=== PATIENT | male | born 1960 | race Caucasian/White ===

== ENCOUNTER 2017-07-05 14:28 | Inpatient (IN) | payer MEDICAID ==
[~2017-07-05] VITALS: Ht 180.3 cm; Wt 125.6 kg
[2017-07-05 15:32] LABS: Basophils # (auto) 0.1 uL; Eosinophils # (auto) 0.1 uL; Lymphocytes # (auto) 1.9 uL; Mean Corpuscular Hgb Conc. 34.1 g/dL (32.0-36.0); Neutrophils # (auto) 3.7 uL; Platelet Count (auto) 61 10^3/uL (140-450); White Blood Cell 6.3 10^3/uL (4.4-10.8)
[2017-07-05 15:34] LABS: Basophils % (auto) 0.8 % (0.0-2.0); Eosinophils % (auto) 1.7 % (0.0-7.0); Hematocrit 49.9 % (41.0-53.0); Lymphocytes % (auto) 29.9 % (10.0-50.0); Mean Corpuscular Volume 96.9 fL (80.0-100.0); Monocytes # (auto) 0.6 uL; Monocytes % (auto) 8.8 % (0.0-12.0); Neutrophils % (auto) 58.8 % (37.0-80.0); Nucleated Red Blood Cells % 0.3 %; Red Blood Cells 5.15 10^6/uL (4.5-5.90); Red Cell Distribution Width 14.3 % (11.8-14.3)
[2017-07-05 15:52] LABS: Albumin 3.1 g/dL (3.4-5.0); BUN/Creatinine Ratio 16.3; Bilirubin, Total 2.3 mg/dL (0.2-1.0); Calcium 8.8 mg/dL (8.5-10.1); Potassium 4.6 mmol/L (3.5-5.1); Total Protein 7.1 g/dL (6.4-8.2)
[2017-07-05] MEDS ORDERED: ONDANSETRON HCL 4 MG/2 ML VIAL IV ONE (19:00)
[2017-07-05] MEDS ORDERED: MORPHINE SULFATE 4 MG/ML SYR/VIAL IV ONE (19:00)
[2017-07-05] MEDS ORDERED: ASPirin 81 mg TAB PO ONE (19:00)
[2017-07-05] MEDS: SODIUM CHLORIDE 0.9% 1,000 ML IV SCH (19:21)
[2017-07-05 19:29] LABS: INR 1.18 (0.9-1.15); Partial Thromboplastin Time 31.6 sec (22.64-33.71); Prothrombin Time 12.9 sec (9.37-12.3)
[2017-07-05] MEDS ORDERED: THIAMINE HCL 100 MG/ML 2ML VIAL IV ONE (19:30)
[2017-07-05] MEDS ORDERED: LACTULOSE 20Gm/30ML SOLN PO PRN (19:30)
[2017-07-05] MEDS ORDERED: MORPHINE SULFATE 4 MG/ML SYR/VIAL IV PRN ×3 (19:30)
[2017-07-05] MEDS ORDERED: PROMETHAZINE HCL 25 MG/ML 1ML IV PRN (19:30)
[2017-07-05] MEDS ORDERED: TEMAZEPAM 15 MG CAP PO PRN (19:30)
[2017-07-05] MEDS ORDERED: NITROGLYCERIN 0.4 MG SL TAB SL PRN (19:30)
[2017-07-05] MEDS ORDERED: LORazepam 0.5 MG TAB PO PRN (19:30)
[2017-07-05] MEDS ORDERED: chlordiazePOXIDE HCL 25 MG CAP PO PRN (19:30)
[2017-07-05] MEDS ORDERED: METOPROLOL TARTRATE 25 MG TAB PO SCH (22:00)
[2017-07-05] MEDS: CARVEDILOL 3.125 MG TAB PO SCH (22:45)
[2017-07-05] MEDS: ENOXAPARIN SOD 120 MG/0.8 ML SYRINGE SC SCH (22:46)
[2017-07-06] MEDS: chlordiazePOXIDE HCL 5 MG CAP PO SCH ×2 (00:55→06:00)
[2017-07-06] MEDS ORDERED: FUROSEMIDE 40 MG/4 ML VIAL ONE (01:19)
[2017-07-06] MEDS ORDERED: LORazepam 2MG/ML-1ML VIAL IV ONE (01:30)
[2017-07-06] MEDS ORDERED: FUROSEMIDE 40 MG/4 ML VIAL IV ONE (01:30)
[2017-07-06] MEDS ORDERED: ETOMIDATE (2MG/ML) 20ML VIAL IV ONE (01:50)
[2017-07-06] MEDS ORDERED: SUCCINYLCHOLINE CHLORIDE 20 MG/ML 10ML VIAL IV ONE (01:50)
[2017-07-06] MEDS ORDERED: PROPOFOL 0 ML IV ONE (01:50)
[2017-07-06] MEDS ORDERED: IOHEXOL 350 MG/ML 100ML IJ ONE (02:15)
[2017-07-06 05:57] LABS: Basophils # (auto) 0 uL; Basophils % (auto) 0.6 % (0.0-2.0); Eosinophils # (auto) 0.1 uL; Eosinophils % (auto) 1.8 % (0.0-7.0); Hematocrit 49.5 % (41.0-53.0); Hemoglobin 16.8 g/dL (13.5-17.5); Lymphocytes # (auto) 1.8 uL; Lymphocytes % (auto) 23.2 % (10.0-50.0); Mean Corpuscular Hemoglobin 33.1 pg (28.0-32.0); Mean Corpuscular Hgb Conc. 33.8 g/dL (32.0-36.0); Mean Corpuscular Volume 97.8 fL (80.0-100.0); Monocytes # (auto) 0.6 uL; Neutrophils # (auto) 5.2 uL; Neutrophils % (auto) 66.4 % (37.0-80.0); Nucleated Red Blood Cells % 0.1 %; Platelet Count (auto) 66 10^3/uL (140-450); Red Blood Cells 5.06 10^6/uL (4.5-5.90); Red Cell Distribution Width 14.3 % (11.8-14.3); White Blood Cell 7.8 10^3/uL (4.4-10.8)
[2017-07-06 06:23] LABS: Albumin 3.1 g/dL (3.4-5.0); BUN/Creatinine Ratio 10.7; Bilirubin, Total 2.5 mg/dL (0.2-1.0); Calcium 8.3 mg/dL (8.5-10.1); Potassium 4.9 mmol/L (3.5-5.1)
[2017-07-06] MEDS: SODIUM CHLORIDE 0.9% 1,000 ML IV SCH (07:08)
[2017-07-06] MEDS: THIAMINE HCL 100 MG/ML 2ML VIAL IV SCH (10:00)
[2017-07-06] MEDS ORDERED: ENALAPRIL MALEATE 2.5 MG TAB PO SCH (10:00)
[2017-07-06] MEDS: FUROSEMIDE 40 MG/4 ML VIAL IV SCH (10:06)
[2017-07-06] MEDS: ENOXAPARIN SOD 120 MG/0.8 ML SYRINGE SC SCH (10:07)
[2017-07-06] MEDS: POTASSIUM CHL 20 Meq TABLET PO SCH (10:07)
[2017-07-06] MEDS: PANTOPRAZOLE 40 MG TAB PO SCH (10:07)
[2017-07-06] MEDS: NITROGLYCERIN 0.2MG/HR TOPICAL PATCH TD SCH (10:07)
[2017-07-06] MEDS: CARVEDILOL 3.125 MG TAB PO SCH ×2 (10:07→21:55)
[2017-07-06] MEDS ORDERED: LORazepam 0.5 MG TAB PO PRN (11:15)
[2017-07-06 15:00] VITALS: BP 101/50
[2017-07-06 16:00] VITALS: BP 96/59
[2017-07-06] MEDS ORDERED: SODIUM CHLORIDE 0.9% 1,000 ML IV SCH (16:15)
[2017-07-06 18:33] LABS: Urine WBC None Seen /hpf (0 - 3)
[2017-07-06 18:44] LABS: Urine Bacteria NONE SEEN /hpf (None Seen); Urine Blood 2+ /uL (Negative); Urine Mucus FEW (None Seen)
[2017-07-06] MEDS ORDERED: LACTULOSE 20Gm/30ML SOLN PO SCH (18:45)
[2017-07-06 18:48] LABS: Urine Specific Gravity > 1.050 (1.001-1.035)
[2017-07-06] MEDS ORDERED: cefTRIAXone 1GM/10ml IVPUSH 10 ML IV ONE (19:00)
[2017-07-06 19:06] LABS: Alcohol, Urine < 3.0 mg/dL (0-5); Amphetamine Screen, Urine POSITIVE (NEGATIVE); Barbiturate Scree,Urine NEGATIVE (NEGATIVE); Benzodiazephine Screen, Urine POSITIVE (NEGATIVE); Cannabinoid Screen, Urine NEGATIVE (NEGATIVE); Cocaine Screen, Urine NEGATIVE (NEGATIVE); Opiate Scree,Urine POSITIVE (NEGATIVE); Phencyclidine Screen, Urine NEGATIVE (NEGATIVE)
[2017-07-06 19:37] VITALS: BP 95/73
[2017-07-06 20:00] VITALS: BP 104/72
[2017-07-06] MEDS: LACTULOSE 20Gm/30ML SOLN PO SCH ×2 (21:54→23:47)
[2017-07-06] MEDS ORDERED: ENOXAPARIN SOD 120 MG/0.8 ML SYRINGE SC SCH (22:00)
[2017-07-07] VITALS (11 sets, daily range): BP systolic 101–130; BP diastolic 59–86
[2017-07-07] MEDS ORDERED: LACTULOSE 20Gm/30ML SOLN PO SCH
[2017-07-07] MEDS: LACTULOSE 20Gm/30ML SOLN PO SCH ×7 (02:42→23:34)
[2017-07-07 05:21] LABS: Basophils # (auto) 0.1 uL; Basophils % (auto) 1.3 % (0.0-2.0); Eosinophils # (auto) 0.1 uL; Eosinophils % (auto) 0.7 % (0.0-7.0); Hematocrit 50.1 % (41.0-53.0); Lymphocytes # (auto) 2.6 uL; Lymphocytes % (auto) 24.8 % (10.0-50.0); Mean Corpuscular Hemoglobin 33.3 pg (28.0-32.0); Mean Corpuscular Volume 98.1 fL (80.0-100.0); Monocytes # (auto) 0.8 uL; Monocytes % (auto) 7.8 % (0.0-12.0); Neutrophils # (auto) 6.8 uL; Neutrophils % (auto) 65.4 % (37.0-80.0); Nucleated Red Blood Cells % 0.5 %; Platelet Count (auto) 81 10^3/uL (140-450); Red Blood Cells 5.11 10^6/uL (4.5-5.90); Red Cell Distribution Width 14.8 % (11.8-14.3); White Blood Cell 10.3 10^3/uL (4.4-10.8)
[2017-07-07 05:41] LABS: Albumin 3.4 g/dL (3.4-5.0); BUN/Creatinine Ratio 11.4; Calcium 8.6 mg/dL (8.5-10.1)
[2017-07-07 05:50] LABS: Bilirubin, Total 3.4 mg/dL (0.2-1.0); Total Protein 7.1 g/dL (6.4-8.2)
[2017-07-07 06:04] LABS: Potassium 6.3 mmol/L (3.5-5.1)
[2017-07-07] MEDS ORDERED: SODIUM POLYSTYRENE SULF 15GM/60ML SUSP PR ONE (09:00)
[2017-07-07] MEDS: cefTRIAXone 1GM/10ml IVPUSH 10 ML IV SCH (09:35)
[2017-07-07] MEDS: PANTOPRAZOLE 40 MG TAB PO SCH (09:35)
[2017-07-07] MEDS: POTASSIUM CHL 20 Meq TABLET PO SCH (09:36)
[2017-07-07] MEDS: THIAMINE HCL 100 MG/ML 2ML VIAL IV SCH (09:36)
[2017-07-07] MEDS: CARVEDILOL 3.125 MG TAB PO SCH (09:36)
[2017-07-07] MEDS: FUROSEMIDE 40 MG/4 ML VIAL IV SCH (09:36)
[2017-07-07] MEDS: NITROGLYCERIN 0.2MG/HR TOPICAL PATCH TD SCH (09:37)
[2017-07-07] MEDS ORDERED: SOD CHL 0.45% 1,000 ML IV SCH (12:15)
[2017-07-07] MEDS: RIFAXIMIN 550 MG TAB PO SCH ×2 (14:15→23:34)
[2017-07-07] MEDS: SODIUM CHLORIDE 0.9% 1,000 ML IV SCH (18:04)
[2017-07-07] MEDS: SODIUM BICARBONATE 650 MG TAB PO SCH (22:45)
[2017-07-08] VITALS: BP 130/82
[2017-07-08] MEDS ORDERED: POTASSIUM CHL 20 Meq TABLET PO ONE ×2 (01:30→08:45)
[2017-07-08 04:00] VITALS: BP 135/89
[2017-07-08 05:46] LABS: Basophils # (auto) 0 uL; Eosinophils # (auto) 0.1 uL; Hemoglobin 14.9 g/dL (13.5-17.5); Neutrophils # (auto) 2.9 uL; Nucleated Red Blood Cells % 0.1 %; White Blood Cell 5.1 10^3/uL (4.4-10.8)
[2017-07-08 05:48] LABS: Basophils % (auto) 0.8 % (0.0-2.0); Eosinophils % (auto) 2.2 % (0.0-7.0); Hematocrit 43.4 % (41.0-53.0); Lymphocytes # (auto) 1.6 uL; Lymphocytes % (auto) 31.3 % (10.0-50.0); Mean Corpuscular Hemoglobin 33.4 pg (28.0-32.0); Mean Corpuscular Hgb Conc. 34.3 g/dL (32.0-36.0); Mean Corpuscular Volume 97.3 fL (80.0-100.0); Monocytes # (auto) 0.5 uL; Monocytes % (auto) 9.1 % (0.0-12.0); Neutrophils % (auto) 56.6 % (37.0-80.0); Platelet Count (auto) 47 10^3/uL (140-450); Red Blood Cells 4.46 10^6/uL (4.5-5.90); Red Cell Distribution Width 13.9 % (11.8-14.3)
[2017-07-08] MEDS: LACTULOSE 20Gm/30ML SOLN PO SCH ×3 (06:00→17:17)
[2017-07-08 06:08] LABS: Albumin 2.6 g/dL (3.4-5.0); BUN/Creatinine Ratio 21.7; Calcium 7.6 mg/dL (8.5-10.1); Magnesium 1.9 mg/dL (1.6-2.6); Phosphorus 4.1 mg/dL (2.5-4.90); Potassium 3.4 mmol/L (3.5-5.1)
[2017-07-08 06:12] LABS: Bilirubin, Total 1.4 mg/dL (0.2-1.0); Total Protein 5.8 g/dL (6.4-8.2)
[2017-07-08 06:30] LABS: Uric Acid 7.4 mg/dL (3.5-7.2)
[2017-07-08 06:31] LABS: Bilirubin, Direct 0.5 mg/dL (0-0.2)
[2017-07-08] MEDS: SODIUM CHLORIDE 0.9% 1,000 ML IV SCH ×2 (06:57→17:09)
[2017-07-08 08:00] VITALS: BP 132/83
[2017-07-08] MEDS ORDERED: DEXTROSE (50%) 50ML SYRG IV PRN (08:45)
[2017-07-08] MEDS: SODIUM BICARBONATE 650 MG TAB PO SCH ×2 (09:44→22:15)
[2017-07-08] MEDS: NITROGLYCERIN 0.2MG/HR TOPICAL PATCH TD SCH (09:45)
[2017-07-08] MEDS: RIFAXIMIN 550 MG TAB PO SCH ×2 (09:45→22:15)
[2017-07-08] MEDS: PANTOPRAZOLE 40 MG TAB PO SCH (09:45)
[2017-07-08] MEDS: MAGNESIUM SULFATE 1GM/100ML 100 ML IV SCH ×2 (09:46→11:32)
[2017-07-08] MEDS: cefTRIAXone 1GM/10ml IVPUSH 10 ML IV SCH (09:46)
[2017-07-08] MEDS: CHLORHEXIDINE 4% TOPICAL soln 473ML TOP SCH (10:00)
[2017-07-08] MEDS: THIAMINE HCL 100 MG/ML 2ML VIAL IV SCH (10:00)
[2017-07-08 11:00] LABS: Protein, Urine 41.7 mg/dL (0.0-11.9)
[2017-07-08] MEDS: ACCU-CHEK COMFORT CURVE STRIP VI SCH ×3 (11:27→22:00)
[2017-07-08] MEDS: InsuLIN REG 1unit/0.01ml Soln (100units/ml) SC SCH ×3 (11:31→22:15)
[2017-07-08 11:50] VITALS: BP 139/73
[2017-07-08] MEDS: NICOTINE 21MG/24 HR TOPICAL PATCH TD SCH (15:06)
[2017-07-08] MEDS: AMIODARONE HCL 200 MG TAB PO SCH (15:06)
[2017-07-08 15:49] VITALS: BP 126/65
[2017-07-08 19:50] VITALS: BP 129/81
[2017-07-09] VITALS (8 sets, daily range): BP systolic 110–155; BP diastolic 72–92
[2017-07-09] MEDS: LACTULOSE 20Gm/30ML SOLN PO SCH ×4 (00:14→17:30)
[2017-07-09 05:23] LABS: Basophils # (auto) 0 uL; Eosinophils # (auto) 0.1 uL; Eosinophils % (auto) 2.5 % (0.0-7.0); Lymphocytes # (auto) 1.3 uL; Monocytes # (auto) 0.6 uL
[2017-07-09 05:25] LABS: Basophils % (auto) 0.9 % (0.0-2.0); Hematocrit 43.2 % (41.0-53.0); Hemoglobin 14.9 g/dL (13.5-17.5); Lymphocytes % (auto) 25.9 % (10.0-50.0); Mean Corpuscular Hemoglobin 33.6 pg (28.0-32.0); Mean Corpuscular Hgb Conc. 34.6 g/dL (32.0-36.0); Mean Corpuscular Volume 97.3 fL (80.0-100.0); Monocytes % (auto) 11.6 % (0.0-12.0); Neutrophils # (auto) 2.8 uL; Neutrophils % (auto) 59.1 % (37.0-80.0); Nucleated Red Blood Cells % 0.4 %; Platelet Count (auto) 42 10^3/uL (140-450); Red Blood Cells 4.44 10^6/uL (4.5-5.90); Red Cell Distribution Width 13.9 % (11.8-14.3); White Blood Cell 4.8 10^3/uL (4.4-10.8)
[2017-07-09 05:42] LABS: BUN/Creatinine Ratio 20.6; Calcium 7.5 mg/dL (8.5-10.1); Magnesium 1.9 mg/dL (1.6-2.6); Potassium 3.7 mmol/L (3.5-5.1)
[2017-07-09] MEDS: ACCU-CHEK COMFORT CURVE STRIP VI SCH ×4 (06:38→22:21)
[2017-07-09] MEDS: InsuLIN REG 1unit/0.01ml Soln (100units/ml) SC SCH ×4 (06:38→22:21)
[2017-07-09] MEDS: SODIUM CHLORIDE 0.9% 1,000 ML IV SCH (06:39)
[2017-07-09] MEDS: THIAMINE HCL 100 MG/ML 2ML VIAL IV SCH (09:19)
[2017-07-09] MEDS: cefTRIAXone 1GM/10ml IVPUSH 10 ML IV SCH (09:24)
[2017-07-09] MEDS: PANTOPRAZOLE 40 MG TAB PO SCH (09:25)
[2017-07-09] MEDS: SODIUM BICARBONATE 650 MG TAB PO SCH ×2 (09:25→22:21)
[2017-07-09] MEDS: AMIODARONE HCL 200 MG TAB PO SCH (09:25)
[2017-07-09] MEDS: RIFAXIMIN 550 MG TAB PO SCH ×2 (09:32→22:00)
[2017-07-09] MEDS: NICOTINE 21MG/24 HR TOPICAL PATCH TD SCH (09:33)
[2017-07-09] MEDS: NITROGLYCERIN 0.2MG/HR TOPICAL PATCH TD SCH (09:37)
[2017-07-09] MEDS ORDERED: FUROSEMIDE 40 MG/4 ML VIAL IV ONE (09:45)
[2017-07-09] MEDS: SPIRONOLACTONE 25 MG TAB PO SCH (11:25)
[2017-07-09] MEDS: THIAMINE INJ 100 MG, MULTIPLE VITAMIN 10 ML, FOLIC ACID 1 MG, MAGNESIUM SULF SDV 50% 8 ... IV SCH ×5 (11:26)
[2017-07-09] MEDS: CHLORHEXIDINE 4% TOPICAL soln 473ML TOP SCH (11:28)
[2017-07-09] MEDS: glipiZIDE 5 MG TAB PO SCH (17:30)
[2017-07-10] VITALS: BP 126/77
[2017-07-10] MEDS: LACTULOSE 20Gm/30ML SOLN PO SCH ×4 (00:10→17:54)
[2017-07-10 05:00] VITALS: BP 111/74
[2017-07-10 06:29] LABS: BUN/Creatinine Ratio 17.1; Basophils # (auto) 0 uL; Calcium 7.6 mg/dL (8.5-10.1); Eosinophils # (auto) 0.1 uL; Magnesium 2.2 mg/dL (1.6-2.6); Monocytes # (auto) 0.6 uL; Neutrophils # (auto) 2.9 uL; Neutrophils % (auto) 59.7 % (37.0-80.0); Potassium 3.5 mmol/L (3.5-5.1); Red Cell Distribution Width 14.1 % (11.8-14.3)
[2017-07-10 06:32] LABS: Basophils % (auto) 0.7 % (0.0-2.0); Eosinophils % (auto) 2.4 % (0.0-7.0); Hematocrit 44.3 % (41.0-53.0); Hemoglobin 15.6 g/dL (13.5-17.5); Lymphocytes # (auto) 1.2 uL; Lymphocytes % (auto) 25.6 % (10.0-50.0); Mean Corpuscular Hemoglobin 33.7 pg (28.0-32.0); Mean Corpuscular Hgb Conc. 35.2 g/dL (32.0-36.0); Mean Corpuscular Volume 95.9 fL (80.0-100.0); Monocytes % (auto) 11.6 % (0.0-12.0); Nucleated Red Blood Cells % 0.1 %; Platelet Count (auto) 47 10^3/uL (140-450); Red Blood Cells 4.62 10^6/uL (4.5-5.90); White Blood Cell 4.8 10^3/uL (4.4-10.8)
[2017-07-10] MEDS: ACCU-CHEK COMFORT CURVE STRIP VI SCH ×4 (06:53→21:31)
[2017-07-10] MEDS: glipiZIDE 5 MG TAB PO SCH ×2 (06:53→17:54)
[2017-07-10] MEDS: InsuLIN REG 1unit/0.01ml Soln (100units/ml) SC SCH ×4 (06:53→21:32)
[2017-07-10 08:00] VITALS: BP 131/79
[2017-07-10] MEDS ORDERED: FUROSEMIDE 40 MG/4 ML VIAL IV ONE (09:53)
[2017-07-10] MEDS ORDERED: POTASSIUM CHL 20 Meq TABLET PO ONE (10:00)
[2017-07-10] MEDS: cefTRIAXone 1GM/10ml IVPUSH 10 ML IV SCH (10:06)
[2017-07-10] MEDS: PANTOPRAZOLE 40 MG TAB PO SCH (10:07)
[2017-07-10] MEDS: RIFAXIMIN 550 MG TAB PO SCH ×2 (10:07→21:31)
[2017-07-10] MEDS: AMIODARONE HCL 200 MG TAB PO SCH (10:07)
[2017-07-10] MEDS: SPIRONOLACTONE 25 MG TAB PO SCH (10:07)
[2017-07-10] MEDS: SODIUM BICARBONATE 650 MG TAB PO SCH ×2 (10:07→21:31)
[2017-07-10] MEDS: NITROGLYCERIN 0.2MG/HR TOPICAL PATCH TD SCH (10:08)
[2017-07-10] MEDS: NICOTINE 21MG/24 HR TOPICAL PATCH TD SCH (10:08)
[2017-07-10] MEDS: CHLORHEXIDINE 4% TOPICAL soln 473ML TOP SCH (10:09)
[2017-07-10 12:00] VITALS: BP 130/71
[2017-07-10] MEDS: THIAMINE INJ 100 MG, MULTIPLE VITAMIN 10 ML, FOLIC ACID 1 MG, MAGNESIUM SULF SDV 50% 8 ... IV SCH ×5 (12:58)
[2017-07-10 16:00] VITALS: BP 122/74
[2017-07-10] MEDS: FUROSEMIDE 40 MG/4 ML VIAL IV SCH (17:55)
[2017-07-10 22:00] VITALS: BP 110/57
[2017-07-11] MEDS: LACTULOSE 20Gm/30ML SOLN PO SCH ×2 (00:09→06:18)
[2017-07-11] MEDS ORDERED: ACETAMINOPHEN 325 MG TAB PO ONE (01:00)
[2017-07-11 05:00] VITALS: BP 137/76
[2017-07-11] MEDS: FUROSEMIDE 40 MG/4 ML VIAL IV SCH (06:17)
[2017-07-11] MEDS: InsuLIN REG 1unit/0.01ml Soln (100units/ml) SC SCH (06:18)
[2017-07-11] MEDS: ACCU-CHEK COMFORT CURVE STRIP VI SCH (06:18)
[2017-07-11] MEDS: glipiZIDE 5 MG TAB PO SCH (06:20)
[2017-07-11 06:44] LABS: Basophils # (auto) 0 uL; Eosinophils # (auto) 0.1 uL; Hematocrit 44.8 % (41.0-53.0); Monocytes # (auto) 0.5 uL
[2017-07-11 06:53] LABS: Basophils % (auto) 0.3 % (0.0-2.0); Eosinophils % (auto) 3.2 % (0.0-7.0); Hemoglobin 15.6 g/dL (13.5-17.5); Lymphocytes # (auto) 1.1 uL; Lymphocytes % (auto) 25.3 % (10.0-50.0); Mean Corpuscular Hemoglobin 33.3 pg (28.0-32.0); Mean Corpuscular Hgb Conc. 34.9 g/dL (32.0-36.0); Mean Corpuscular Volume 95.4 fL (80.0-100.0); Monocytes % (auto) 11.3 % (0.0-12.0); Neutrophils # (auto) 2.6 uL; Neutrophils % (auto) 59.9 % (37.0-80.0); Nucleated Red Blood Cells % 0.2 %; White Blood Cell 4.4 10^3/uL (4.4-10.8)
[2017-07-11 07:05] LABS: BUN/Creatinine Ratio 16.5; Calcium 7.9 mg/dL (8.5-10.1); Potassium 3.5 mmol/L (3.5-5.1)
[2017-07-11 07:09] LABS: Platelet Count (auto) 48 10^3/uL (140-450)
[2017-07-11] MEDS ORDERED: POTASSIUM CHL 20 Meq TABLET PO ONE (08:45)
[2017-07-11 09:00] VITALS: BP 104/73
[2017-07-11] MEDS: AMIODARONE HCL 200 MG TAB PO SCH (09:09)
[2017-07-11] MEDS: SODIUM BICARBONATE 650 MG TAB PO SCH (09:09)
[2017-07-11] MEDS: SPIRONOLACTONE 25 MG TAB PO SCH (09:09)
[2017-07-11] MEDS: cefTRIAXone 1GM/10ml IVPUSH 10 ML IV SCH (09:09)
[2017-07-11] MEDS: PANTOPRAZOLE 40 MG TAB PO SCH (09:09)
[2017-07-11] MEDS: MAGNESIUM SULFATE 1GM/100ML 100 ML IV SCH ×2 (09:09→10:41)
[2017-07-11] MEDS: RIFAXIMIN 550 MG TAB PO SCH (09:10)
[2017-07-11] MEDS: NICOTINE 21MG/24 HR TOPICAL PATCH TD SCH (09:10)
[2017-07-11] MEDS: CHLORHEXIDINE 4% TOPICAL soln 473ML TOP SCH (09:11)
[2017-07-11] MEDS: NITROGLYCERIN 0.2MG/HR TOPICAL PATCH TD SCH (09:11)
[2017-07-11 09:46] VITALS: BP 138/74
[2017-07-11 14:21] LABS: Hepatitis B Surface Antibody Negative
[2017-07-11 15:37] LABS: Hepatitis C Antibody Positive (Negative)
== END 2017-07-11 13:20 | disposition home or self-care (01) | DRG 279 ==
LOC: ER 14:28 → OVERFLOW 14:29 → DOU IN ICU 07-06 14:51 → TELE-WESTW 07-09 15:12
PROVIDERS: ADMIT Internal Medicine; ATTEND Internal Medicine
DX: K72.90 Hepatic failure, unspecified without coma (principal); I21.4 Non-ST elevation (NSTEMI) myocardial infarction; J96.90 Respiratory failure, unspecified, unspecified whether with hypoxia or hypercapnia; N17.0 Acute kidney failure with tubular necrosis; I50.21 Acute systolic (congestive) heart failure; I24.9 Acute ischemic heart disease, unspecified; D69.6 Thrombocytopenia, unspecified; E44.0 Moderate protein-calorie malnutrition; I42.0 Dilated cardiomyopathy; I27.20 Pulmonary hypertension, unspecified; E87.6 Hypokalemia; E11.22 Type 2 diabetes mellitus with diabetic chronic kidney disease; E87.5 Hyperkalemia; E87.1 Hypo-osmolality and hyponatremia; I47.1 Supraventricular tachycardia; F17.210 Nicotine dependence, cigarettes, uncomplicated; F15.90 Other stimulant use, unspecified, uncomplicated; K74.60 Unspecified cirrhosis of liver; B19.20 Unspecified viral hepatitis C without hepatic coma; J44.9 Chronic obstructive pulmonary disease, unspecified; N18.9 Chronic kidney disease, unspecified; Z68.38 Body mass index [BMI] 38.0-38.9, adult; Z82.49 Family history of ischemic heart disease and other diseases of the circulatory system
CPT/HCPCS: 36415; 36600; 71045; 71275; 76775; 80048; 80053; 80061; 80076; 80307; 81001; 82140; 82550; 82570; 82805; 82962; 83036; 83735; 83880; 84100; 84132; 84156; 84300; 84443; 84484; 84550; 85025; 85379; 85610; 85652; 85730; 86141; 86160; 86706; 86803; 87040; 87081; 87086; 93005; 93306; 96374; 96375; G0378; J0330; J1815; J2405; J2704

== ENCOUNTER 2017-12-22 17:13 | Inpatient (IN) | payer MEDICAID ==
[~2017-12-22] VITALS: Ht 180.3 cm; Wt 113.4 kg
[2017-12-22 18:42] LABS: Lymphocytes # (auto) 1.1 uL; Mean Corpuscular Hgb Conc. 35.2 g/dL (32.0-36.0); Monocytes # (auto) 0.7 uL; Nucleated Red Blood Cells % 0.2 %; Platelet Count (auto) 62 10^3/uL (140-450); White Blood Cell 6.5 10^3/uL (4.4-10.8)
[2017-12-22 18:45] LABS: Basophils # (auto) 0.1 uL; Basophils % (auto) 1.1 % (0.0-2.0); Eosinophils # (auto) 0.2 uL; Eosinophils % (auto) 2.8 % (0.0-7.0); Hematocrit 49.1 % (41.0-53.0); Hemoglobin 17.3 g/dL (13.5-17.5); Lymphocytes % (auto) 16.8 % (10.0-50.0); Mean Corpuscular Hemoglobin 34.7 pg (28.0-32.0); Mean Corpuscular Volume 98.6 fL (80.0-100.0); Monocytes % (auto) 10.8 % (0.0-12.0); Neutrophils # (auto) 4.4 uL; Neutrophils % (auto) 68.5 % (37.0-80.0); Red Blood Cells 4.98 10^6/uL (4.5-5.90); Red Cell Distribution Width 13.7 % (11.8-14.3)
[2017-12-22 19:01] LABS: Albumin 3.2 g/dL (3.4-5.0); Calcium 8.9 mg/dL (8.5-10.1)
[2017-12-22 19:03] LABS: BUN/Creatinine Ratio 14.3
[2017-12-22 19:05] LABS: Total Protein 6.7 g/dL (6.4-8.2)
[2017-12-22 19:06] LABS: Urine Bacteria NONE SEEN /hpf (None Seen); Urine Blood 3+ /uL (Negative); Urine Mucus FEW (None Seen); Urine Specific Gravity 1.017 (1.001-1.035); Urine WBC 10 /hpf (0 - 3)
[2017-12-22] MEDS ORDERED: CIPROFLOXACIN 400MG/200ML 200 ML IV ONE (20:30)
[2017-12-22] MEDS ORDERED: HYDROcodone-ACET 5/325MG TAB PO PRN (21:45)
[2017-12-22] MEDS ORDERED: ACETAMINOPHEN 500 MG TAB PO PRN (21:45)
[2017-12-22] MEDS ORDERED: ONDANSETRON HCL 4 MG/2 ML VIAL IV PRN (21:45)
[2017-12-22] MEDS: SODIUM CHLORIDE 0.9% 1,000 ML IV SCH (22:00)
[2017-12-22] MEDS: ATORVASTATIN 20 MG TAB PO SCH (23:36)
[2017-12-22] MEDS: CARVEDILOL 3.125 MG TAB PO SCH (23:38)
[2017-12-23] MEDS ORDERED: CARV3.1240 PO (02:39)
[2017-12-23] MEDS ORDERED: HYDR-4683 PO (02:39)
[2017-12-23] MEDS ORDERED: GLIP-115 PO (02:39)
[2017-12-23 04:42] VITALS: BP 111/45
[2017-12-23] MEDS: glipiZIDE 5 MG TAB PO SCH ×2 (05:59→18:15)
[2017-12-23 06:35] LABS: Basophils # (auto) 0 uL; Basophils % (auto) 0.4 % (0.0-2.0); Eosinophils # (auto) 0.1 uL; Eosinophils % (auto) 2.8 % (0.0-7.0); Hematocrit 47.5 % (41.0-53.0); Hemoglobin 16.4 g/dL (13.5-17.5); Lymphocytes # (auto) 1.3 uL; Lymphocytes % (auto) 25.6 % (10.0-50.0); Mean Corpuscular Hemoglobin 33.8 pg (28.0-32.0); Mean Corpuscular Hgb Conc. 34.4 g/dL (32.0-36.0); Mean Corpuscular Volume 98.1 fL (80.0-100.0); Monocytes # (auto) 0.6 uL; Monocytes % (auto) 10.6 % (0.0-12.0); Neutrophils # (auto) 3.2 uL; Neutrophils % (auto) 60.6 % (37.0-80.0); Nucleated Red Blood Cells % 0.2 %; Platelet Count (auto) 57 10^3/uL (140-450); Red Blood Cells 4.85 10^6/uL (4.5-5.90); White Blood Cell 5.2 10^3/uL (4.4-10.8)
[2017-12-23 06:51] LABS: BUN/Creatinine Ratio 18.5; Calcium 8.5 mg/dL (8.5-10.1); Potassium 3.5 mmol/L (3.5-5.1)
[2017-12-23 09:00] VITALS: BP 116/58
[2017-12-23] MEDS: cefTRIAXone 1GM/10ml IVPUSH 10 ML IV SCH (09:15)
[2017-12-23] MEDS: ASPirin-EC 81 mg tab PO SCH (09:15)
[2017-12-23] MEDS: CARVEDILOL 3.125 MG TAB PO SCH ×2 (09:15→21:54)
[2017-12-23] MEDS: SPIRONOLACTONE 25 MG TAB PO SCH (10:00)
[2017-12-23] MEDS: BENAZEPRIL HCL 10 MG TAB PO SCH (10:00)
[2017-12-23] MEDS: SODIUM CHLORIDE 0.9% 1,000 ML IV SCH (11:20)
[2017-12-23 13:00] VITALS: BP 121/64
[2017-12-23 17:00] VITALS: BP 125/74
[2017-12-23] MEDS ORDERED: TAMSULOSIN HYDROCHLORIDE 0.4 MG CAP PO SCH (18:00)
[2017-12-23] MEDS: ATORVASTATIN 20 MG TAB PO SCH (21:54)
[2017-12-23 22:05] VITALS: BP 133/78
[2017-12-24] MEDS: SODIUM CHLORIDE 0.9% 1,000 ML IV SCH (00:18)
[2017-12-24 04:44] VITALS: BP 118/58
[2017-12-24] MEDS: glipiZIDE 5 MG TAB PO SCH (06:23)
[2017-12-24 09:00] VITALS: BP 103/51
[2017-12-24] MEDS: cefTRIAXone 1GM/10ml IVPUSH 10 ML IV SCH (09:27)
[2017-12-24] MEDS: SPIRONOLACTONE 25 MG TAB PO SCH (09:28)
[2017-12-24] MEDS: ASPirin-EC 81 mg tab PO SCH (09:28)
[2017-12-24] MEDS ORDERED: MANNITOL FTV 25% 12.5 GM/50 ML 50 ML IV ONE (10:00)
[2017-12-24] MEDS: BENAZEPRIL HCL 10 MG TAB PO SCH (10:00)
[2017-12-24] MEDS: CARVEDILOL 3.125 MG TAB PO SCH (10:00)
[2017-12-24 12:39] VITALS: BP 114/52
[2017-12-24 14:30] VITALS: BP 114/52
[2017-12-24] MEDS ORDERED: ALBUMIN 5% 250 ML IV ONE (15:35)
[2017-12-24] MEDS ORDERED: TAMSULOSIN HYDROCHLORIDE 0.4 MG CAP PO SCH (18:00)
== END 2017-12-24 16:24 | disposition home or self-care (01) | DRG 465 ==
LOC: ER 17:13 → OVERFLOW 17:14 → WEST WING 22:48
PROVIDERS: ADMIT Nurse Practitioner Family; ATTEND Internal Medicine Pulmonary Disease
DX: N13.2 Hydronephrosis with renal and ureteral calculous obstruction (principal); I11.0 Hypertensive heart disease with heart failure; I50.9 Heart failure, unspecified; K76.6 Portal hypertension; K70.30 Alcoholic cirrhosis of liver without ascites; N40.0 Benign prostatic hyperplasia without lower urinary tract symptoms; E66.9 Obesity, unspecified; F17.210 Nicotine dependence, cigarettes, uncomplicated; E78.5 Hyperlipidemia, unspecified; R39.14 Feeling of incomplete bladder emptying; E11.9 Type 2 diabetes mellitus without complications; Z82.49 Family history of ischemic heart disease and other diseases of the circulatory system; Z83.3 Family history of diabetes mellitus; Z68.34 Body mass index [BMI] 34.0-34.9, adult; Z87.442 Personal history of urinary calculi; N39.0 Urinary tract infection, site not specified
CPT/HCPCS: 36415; 51702; 74176; 80048; 80053; 81001; 82360; 82962; 83036; 84154; 85025; 93005; 94761; 96365; J0696

== ENCOUNTER 2018-01-16 22:18 | Emergency (ER) | payer MEDICAID ==
[~2018-01-16] VITALS: Ht 180.3 cm; Wt 115.2 kg
[~2018-01-16 22:18] MED LIST: CARV3.1240 PO; GLIP-115 PO; HYDR-4683 PO
[2018-01-16 23:21] LABS: Basophils # (auto) 0 uL; Basophils % (auto) 0.6 % (0.0-2.0); Eosinophils # (auto) 0.2 uL; Eosinophils % (auto) 2.6 % (0.0-7.0); Hematocrit 51.9 % (41.0-53.0); Hemoglobin 18.1 g/dL (13.5-17.5); Lymphocytes # (auto) 1.7 uL; Lymphocytes % (auto) 27.2 % (10.0-50.0); Mean Corpuscular Hemoglobin 34.1 pg (28.0-32.0); Mean Corpuscular Volume 97.5 fL (80.0-100.0); Monocytes # (auto) 0.7 uL; Monocytes % (auto) 12.2 % (0.0-12.0); Neutrophils # (auto) 3.5 uL; Neutrophils % (auto) 57.4 % (37.0-80.0); Nucleated Red Blood Cells % 0.3 %; Platelet Count (auto) 68 10^3/uL (140-450); Red Blood Cells 5.32 10^6/uL (4.5-5.90); Red Cell Distribution Width 13.7 % (11.8-14.3); White Blood Cell 6.1 10^3/uL (4.4-10.8)
[2018-01-16 23:38] LABS: Alanine Aminotransferase 47 U/L (16-61); Albumin 3.6 g/dL (3.4-5.0); Anion Gap 8 (5-15); Aspartate Aminotransferase 45 U/L (15-37); BUN/Creatinine Ratio 14.6; Blood Urea Nitrogen 13 mg/dL (7-18); Calcium 8.5 mg/dL (8.5-10.1); Carbon Dioxide 22 mmol/L (21-32); Chloride 111 mmol/L (98-107); GFR African American 113 mL/min; GFR Non-African American 94 mL/min; Glucose 70 mg/dL (74-106); Magnesium 2.1 mg/dL (1.6-2.6); Potassium 4.4 mmol/L (3.5-5.1); Sodium 141 mmol/L (136-145)
[2018-01-16 23:43] LABS: Alkaline Phosphatase 54 U/L (45-117); Bilirubin, Total 1.4 mg/dL (0.2-1.0); Total Protein 7.4 g/dL (6.4-8.2)
[2018-01-16 23:44] LABS: INR 1.09 (0.9-1.15); Partial Thromboplastin Time 31.1 sec (23.78-33.04); Prothrombin Time 11.6 sec (9.27-12.13)
[2018-01-17 04:30] VITALS: BP 135/85
== END 2018-01-17 04:46 | disposition home or self-care (01) ==
LOC: ER 22:21
DX: S20.212A Contusion of left front wall of thorax, initial encounter (principal); E11.9 Type 2 diabetes mellitus without complications; I11.0 Hypertensive heart disease with heart failure; I50.9 Heart failure, unspecified; E78.5 Hyperlipidemia, unspecified; I25.2 Old myocardial infarction; F17.210 Nicotine dependence, cigarettes, uncomplicated; Z79.84 Long term (current) use of oral hypoglycemic drugs; Z79.899 Other long term (current) drug therapy; X58.XXXA Exposure to other specified factors, initial encounter; Y93.89 Activity, other specified; Y99.8 Other external cause status; Y92.89 Other specified places as the place of occurrence of the external cause
CPT/HCPCS: 36415; 71046; 80053; 83735; 83880; 84443; 84484; 85025; 85610; 85730; 93005

== ENCOUNTER 2018-04-29 04:20 | Emergency (ER) | payer MEDICAID ==
[~2018-04-29] VITALS: Ht 180.3 cm; Wt 120.2 kg
[2018-04-29 06:56] LABS: Mean Corpuscular Hgb Conc. 34.6 g/dL (32.0-36.0)
[2018-04-29 06:58] LABS: Hemoglobin 16.6 g/dL (13.5-17.5); Mean Corpuscular Hemoglobin 33.9 pg (28.0-32.0); Mean Corpuscular Volume 98.1 fL (80.0-100.0); Platelet Count (auto) 55 10^3/uL (140-450); Red Cell Distribution Width 14.8 % (11.8-14.3); White Blood Cell 4.7 10^3/uL (4.4-10.8)
[2018-04-29 07:17] LABS: Basophils % (manual) 0 (0.0-2.0); Blast Cells 0; Metamyelocytes % 0; Myelocytes % 0; Promyelocytes % 0; Reactive Lymphocytes 0
[2018-04-29 07:21] LABS: Albumin 3.6 g/dL (3.4-5.0); Calcium 8.3 mg/dL (8.5-10.1); Potassium 3.5 mmol/L (3.5-5.1)
[2018-04-29 07:25] LABS: BUN/Creatinine Ratio 16.9; Bilirubin, Total 2.6 mg/dL (0.2-1.0); Total Protein 7.4 g/dL (6.4-8.2)
[2018-04-29 08:02] LABS: Band Neutrophils % (manual) 3; Eosinophils % (manual) 1 (0-7); Lymphocytes % (manual) 30 (10.0-50.0); Monocytes % (manual) 26 (0-12)
[2018-04-29 08:40] VITALS: BP 113/74
[2018-04-29] MEDS ORDERED: IPRATROPIUM BROM 0.5 MG/2.5ML INH SOL NEB ONE (09:15)
[2018-04-29] MEDS ORDERED: cefTRIAXone SOD 1,000 MG VL IM ONE (09:15)
[2018-04-29] MEDS ORDERED: ALBUTEROL SULF 2.5 MG/0.5ML(0.5%) NEB SOLN NEB ONE (09:15)
== END 2018-04-29 10:44 | disposition home or self-care (01) ==
LOC: ER 04:20
DX: J20.9 Acute bronchitis, unspecified (principal); J02.9 Acute pharyngitis, unspecified; H92.02 Otalgia, left ear; I11.0 Hypertensive heart disease with heart failure; I50.9 Heart failure, unspecified; E78.5 Hyperlipidemia, unspecified; E11.9 Type 2 diabetes mellitus without complications; F17.210 Nicotine dependence, cigarettes, uncomplicated
CPT/HCPCS: 36415; 71046; 80053; 83880; 85007; 85027; 96372; 99284; J0696

== ENCOUNTER 2021-10-12 13:25 | Emergency (ER) | payer MEDICAID ==
[~2021-10-12] VITALS: Ht 180.3 cm; Wt 113.4 kg
[~2021-10-12 13:25] MED LIST changes: -GLIP-115 PO; +GLIP5TAB12 PO; -HYDR-4683 PO; +HYDR-4833 PO
[2021-10-12 13:27] VITALS: BP 104/85
[2021-10-12 21:19] LABS: Red Cell Distribution Width 14.3 % (11.8-14.3)
[2021-10-12 21:23] LABS: Basophils # (auto) 0.1 10 ^3/uL (0-0.2); Basophils % (auto) 2.1 % (0.0-2.0); Eosinophils # (auto) 0.2 10 ^3/uL (0-0.8); Eosinophils % (auto) 2.4 % (0.0-7.0); Hematocrit 52.2 % (41.0-53.0); Hemoglobin 18.3 g/dL (13.5-17.5); Lymphocytes # (auto) 1.7 10 ^3/uL (0.4-5.4); Mean Corpuscular Hemoglobin 34.2 pg (28.0-32.0); Mean Corpuscular Volume 97.6 fL (80.0-100.0); Monocytes # (auto) 0.7 10 ^3/uL (0-1.3); Monocytes % (auto) 10.6 % (0.0-12.0); Neutrophils # (auto) 4.2 10 ^3/uL (1.6-8.6); Neutrophils % (auto) 60.9 % (37.0-80.0); Nucleated Red Blood Cells % 0.2 %; Red Blood Cells 5.35 10^6/uL (4.5-5.90)
[2021-10-12 21:35] LABS: Albumin 2.5 g/dL (3.4-5.0); Potassium 4.7 mmol/L (3.5-5.1)
[2021-10-12 21:41] LABS: BUN/Creatinine Ratio 14.4; Bilirubin, Total 2.1 mg/dL (0.2-1.0); Total Protein 6.6 g/dL (6.4-8.2)
== END 2021-10-13 00:06 | disposition left against medical advice (07) ==
LOC: ER 13:25
DX: N50.819 Testicular pain, unspecified (principal); Z53.21 Procedure and treatment not carried out due to patient leaving prior to being seen by health care provider
CPT/HCPCS: 36415; 71045; 76870; 80053; 84484; 85025; 93005

== ENCOUNTER 2025-03-12 23:44 | Emergency (ER) | payer MEDICAID ==
[~2025-03-12] VITALS: Ht 180.3 cm; Wt 113.0 kg
[~2025-03-12 23:44] MED LIST changes: +AMIO200T33 PO; +ATOR20TA50 PO; +FURO40TA4 PO; -GLIP5TAB12 PO; +GLIP5TAB21 PO; +SACU1TAB PO
[2025-03-13 00:20] VITALS: PULSE 60; RESP 16; O2SAT 95
[2025-03-13] MEDS: HYDROcodone-ACET 10/325MG TAB PO ONE (00:28)
--- NOTE | 2025-03-13 02:15 | ED.PDOC ---
Back pain HPI HPI Comments PT PRESENTS TO ED FOR CC OF R SIDED CHEST WALL AND RIB PAIN X 1 DAY S/P MECHANICAL FALL. DENIES SOB. DENIES DIFFICULTY BREATHING. Chief Complaint: Chest Wall Injury Time Seen by MD: 23:49 Primary Care Provider: unknown Reviewed Notes: Nurses Notes, Medications, Allergies Allergies: Coded Allergies: NO KNOWN ALLERGIES (Unverified , 07/25/10) Home Meds Active Scripts Sacubitril-Valsartan (Entresto 24-26 mg) 1 Tab Tab, 0.5 TAB PO QPM, #30 TAB Prov:MATIAS MART MD 09/15/22 Furosemide (Furosemide) 40 Mg Tab, 1 TAB PO BID, #90 TAB 3 Refills Prov:MATIAS MART MD 09/15/22 Amiodarone Hcl (Amiodarone Hcl) 200 Mg Tab, 1 TAB PO BID, #90 TAB 1 Refill Prov:MATIAS MART MD 09/15/22 Atorvastatin Calcium (ATORVASTATIN CALCIUM) 20 Mg Tab, 1 TAB PO DAILY, #90 TAB 1 Refill Prov:MATIAS MART MD 09/15/22 Carvedilol (Carvedilol) 3.125 Mg Tab, 3.125 MG PO BID, #90 MG Prov:MATIAS MART MD 09/15/22 Reported Medications Glipizide (Glipizide) 5 Mg Tab, 5 MG PO BID for 30 Days, MG 12/23/17 Hydrocodone-Acetaminophen ([place] 5/325MG) 1 Tab Tb, 1 TAB PO TID, #90 TAB 12/23/17 Information Source: Patient Mode of Arrival: Ambulatory Past Medical History PAST MEDICAL HISTORY: CHF, DM, High Lipids, HTN, Liver Family History Family History: No family hx of Heart betty, No family hx of HTN Social History Smoker: Cigarettes, Greater Than 1 Pack/Day Alcohol: Occasionally Drugs: Denies Drug Use Lives In: Home Physical Exam General Appearance: No Apparent Distress, Normal HEENT: Pharynx Normal Neck: Full Range of Motion, Non-Tender Respiratory: Lungs Clear, No Accessory Muscle Use, No Respiratory Distress, Normal Breath Sounds, Other (TENDERNESS ON PALPATION RIGHT-SIDED CHEST WALL NO NOTED CREPITUS ECCHYMOSIS OR SWELLING) Cardiovascular: No Edema, No JVD, No Murmur, No Gallop, Normal Peripheral Pulses, Regular Rate/Rhythm Breast Exam: Deferred Gastrointestinal: No Organomegaly, Non Tender, Soft Genitalia: Deferred Pelvic: Deferred Rectal: Deferred Extremities: Normal range of motion, No pedal edema Musculoskeletal : Apperance: Normal Neurologic: Alert, No Motor Deficits, Normal Affect, Normal Mood, No Sensory Deficits Cerebellar Function: Normal Reflexes: NOT DONE Skin: Dry, Normal Color, Warm Lymphatic: No Adenopathy Was a procedure done? Was a procedure done?: No Back Pain Differential Dx Differential Diagnosis: Fracture, Musculoskeletal Pain X-Ray, Labs, Meds, VS Vital Signs Date Time Temp Pulse Resp B/P (MAP) Pulse Ox O2 Delivery O2 Flow Rate FiO2 03/13/25 00:20 97.9 60 16 111/73 (86) 95 97.9 03/13/25 00:20 60 16 95 Room Air* 0 21 03/12/25 23:44 98.1 60 18 127/82 94 98.1 Current Medications Medications (Trade) Dose Ordered Sig/Johnna Route Start Time Stop Time Status Last Admin Acetaminophen/ Hydrocodone Bitart ([place] 10/325MG Tab) 1 tab ONCE ONCE PO 03/13/25 00:00 03/13/25 00:02 DC 03/13/25 00:28 X-Ray, Labs, Meds, VS Comment Rib x-ray shows no acute fractures or dislocations. Shows pacemaker leads in place. No cardiopulmonary findings. Patient given [place] 5 mg p.o. reports improvement in pain and function re questing discharge. Advised take [id number] Tylenol or Motrin as needed for the pain per labeled dosing instructions. Advised to apply ice as discussed. Follow up with your PCP in 2-3 days as necessary ER return precautions given patient indicates understanding agrees with discharge plan of care. Time of 1ST Reevaluation: 23:49 Reevaluation 1ST: Unchanged Time of 2ND Reevaluation: 03:14 Reevaluation 2ND: Improved Patient Education/Counseling: Diagnosis, Treatment, Need For Follow Up Family Education/Counseling: No Family Present SEPSIS Sepsis Screen Date sepsis recognized/suspect: Mar 13, 2025 Time Sepsis recognized/suspect: 0025 Recent Procedure: No On Antibiotic Therapy: No Respiratory Rate >20: No Heart Rate >90: No Temp<36 C (96.8 F) or >38.3 C: No SBP <90 or MAP <65 mmHG: No New Acute Mental Status Change: No Is the patient on CPAP, BIPAP,: No Physician Orders Ribs Bilateral (03/13/25 00:00) Vital Signs Date Time Temp Pulse Resp B/P (MAP) Pulse Ox O2 Delivery O2 Flow Rate FiO2 03/13/25 00:20 97.9 60 16 111/73 (86) 95 97.9 03/13/25 00:20 60 16 95 Room Air* 0 21 03/12/25 23:44 98.1 60 18 127/82 94 98.1 Medications Medications Dose Ordered Sig/Johnna Route Start Time Stop Time Status Last Admin Dose Admin Acetaminophen/ Hydrocodone Bitart 1 tab ONCE ONCE PO 03/13/25 00:00 03/13/25 00:02 DC 03/13/25 00:28 Departure 1 Departure Time of Disposition: 03:14 Impression: Primary Impression: Contusion of right chest wall Qualified Codes: S20.211A - Contusion of right front wall of thorax, initial encounter Disposition: HOME / SELF CARE / HOMELESS Condition: Stable Discharged With: Self Critical Care Note Critical Care Time?: No Stability Stability form required: TAYLOR Christianson Mar 13, 2025 02:15
--- NOTE | 2025-03-13 03:00 | DVH ---
EXAMINATION: XY RIBS BILATERAL INDICATION: Rib pain status post fall COMPARISON: XY CHEST PORTABLE on DOS: 09/12/22, CHEST PORTABLE on DOS: 10/12/21, CXRP on DOS: 10/12/21 TECHNIQUE: Frontal view of the chest and 5 views of the bilateral ribs history FINDINGS: No focal consolidation, pleural effusion or significant pneumothorax. Normal cardiomediastinal silhou ette. Left anterior chest wall dual lead cardiac pacing device. No displaced bilateral rib fracture. IMPRESSION: 1. No acute cardiopulmonary disease. 2. No displaced
[2025-03-13 03:26] VITALS: BP 112/73; PULSE 60; RESP 16; TEMP 97.7; O2SAT 96
[2025-03-13] MEDS ORDERED: HYDR-4902 PO (03:26)
== END 2025-03-13 03:30 | disposition home or self-care (01) ==
LOC: EDBD 23:44 → ER 23:44
DX: S20.211A Contusion of right front wall of thorax, initial encounter (principal); F17.210 Nicotine dependence, cigarettes, uncomplicated; E11.9 Type 2 diabetes mellitus without complications; Z79.899 Other long term (current) drug therapy; W19.XXXA Unspecified fall, initial encounter; Y93.89 Activity, other specified; Y92.89 Other specified places as the place of occurrence of the external cause; Y99.8 Other external cause status
CPT/HCPCS: 71111